=== PATIENT | male | born 1995 | race Caucasian/White ===

== ENCOUNTER → 2017-07-13 | Outpatient (CLI) | payer OTHER | LOC: COL.RAD 12:46 | DX: N20.1 Calculus of ureter (principal) ==

== ENCOUNTER 2017-07-20 17:55 | Emergency (ER) | payer OTHER ==
[~2017-07-20] VITALS: Ht 185.4 cm; Wt 84.1 kg
[2017-07-20 18:03] VITALS: BP 121/65; PULSE 60; TEMP 98
== END 2017-07-20 19:35 | disposition home or self-care (01) ==
LOC: COL.ER 17:55
DX: H53.2 Diplopia (principal)
CPT/HCPCS: Q9967